=== PATIENT | male | born 1995 | race Hispanic/Latino ===

== ENCOUNTER → 2019-06-08 | Outpatient (CLI) | payer OTHER ==
[2019-06-08 14:45] LABS: EOSINOPHILS % (AUTO) 1.9 % (0.0-8.0); HEMATOCRIT 48.5 % (42-54); LYMPHOCYTES % (AUTO) 26.6 % (21.0-51.0); MEAN CORPUSCULAR HEMOGLOBIN 31.2 pg (27.0-33.0); MEAN CORPUSCULAR HGB CONC 34.3 g/dL (32.0-36.0); MEAN CORPUSCULAR VOLUME 91.1 fL (79-99); MONOCYTES % (AUTO) 8.5 % (3.0-13.0); NUCLEATED RED BLOOD CELLS 0.1 % (0.0-0.19); PLATELET COUNT (AUTO) 249 K/uL (130-400); RED BLOOD CELL COUNT(AUTO) 5.33 MIL/uL (4.50-6.20); RED CELL DISTRIBUTION WIDTH 12.4 % (11.0-15.5); WHITE BLOOD COUNT (AUTO) 5.3 K/uL (4.8-10.8)
[2019-06-08 15:05] LABS: ALBUMIN 4.1 g/dL (3.5-5.0); BILIRUBIN,TOTAL 0.5 mg/dL (0.2-1.0); CREATININE 1.1 mg/dL (0.5-1.5); POTASSIUM 4.3 mmol/L (3.5-5.1); TOTAL PROTEIN, SERUM 7.5 g/dL (6.0-8.3)
[2019-06-08 21:12] LABS: HEMOGLOBIN A1C 5.2 % (4.0-6.0)
== END | disposition home or self-care (01) ==
LOC: RAH 14:02
PROVIDERS: ATTEND Internal Medicine
DX: M54.5 Low back pain (principal); Z83.438 Family history of other disorder of lipoprotein metabolism and other lipidemia; Z83.3 Family history of diabetes mellitus
CPT/HCPCS: 36415; 72100; 80053; 80061; 83036; 85025

== ENCOUNTER 2019-08-22 14:21 | Emergency (ER) | payer OTHER ==
[2019-08-22] MEDS ORDERED: KETOROLAC TROMETHAMINE 60 MG/2 ML VIAL ONE (15:03)
[2019-08-22] MEDS ORDERED: DIAZEPAM 5 MG TABLET ONE (15:04)
[2019-08-22] MEDS ORDERED: LIDOCAINE 5% TOPICAL PATCH TP ONE (15:04)
== END 2019-08-22 15:53 | disposition home or self-care (01) ==
LOC: EDH 14:21
DX: M62.830 Muscle spasm of back (principal)
CPT/HCPCS: 96372; 99283; J1885